=== PATIENT | female | born 1960 | race Caucasian/White ===

== ENCOUNTER 2022-05-06 06:33 | Emergency (ER) | payer OTHER ==
[2022-05-06 08:28] LABS: HEMOGLOBIN 14.1 gm/dl (12.3-15.3); RED BLOOD COUNT 4.84 M/UL (4.00-5.10); WHITE BLOOD COUNT 11.8 K/UL (4.5-11.0)
[2022-05-06 08:48] LABS: BUN/CREATININE RATIO 13 (0-10)
[2022-05-06] MEDS ORDERED: CEPHALEXIN500 MG PO (10:04)
== END 2022-05-06 10:34 | disposition home or self-care (01) ==
LOC: ER1 06:33
PROVIDERS: Emergency Medicine
DX: N39.0 Urinary tract infection, site not specified (principal); R42 Dizziness and giddiness; R51.9 Headache, unspecified; Z90.89 Acquired absence of other organs; Z90.49 Acquired absence of other specified parts of digestive tract; F17.200 Nicotine dependence, unspecified, uncomplicated
CPT/HCPCS: 71046; 80053; 81001; 82550; 82553; 84484; 85025; 85379; 93005; 99284; J0696